=== PATIENT | male | born 1975 | race Caucasian/White ===

== ENCOUNTER 2022-12-17 10:02 | Emergency (ER) | payer MEDICAID ==
[~2022-12-17] VITALS: Ht 188 cm; Wt 104.0 kg
[2022-12-17 10:21] VITALS: O2SAT 98
[2022-12-17] MEDS ORDERED: TRAMADOL 50MG TABLET PO ONE (11:15)
[2022-12-17] MEDS ORDERED: KETOROLAC 60MG/2ML VIAL IM ONE (11:15)
[2022-12-17 12:09] LABS: CALCIUM 8.7 mg/dL (8.5-10.1); CHLORIDE 108 mEq/L (98-107); INDEX HEMOLYSI 1 (1-3); INDEX ICTERIC 1 (1-4); INDEX LIPEMIC 1 (1-3); POTASSIUM 4.9 mEq/L (3.5-5.1); SODIUM 138 mEq/L (136-145)
[2022-12-17 12:12] LABS: CARBON DIOXIDE 28 mEq/L (21-32); GLUCOSE 109 mg/dL (70-105); UREA NITROGEN BLOOD 16 mg/dL (7-21)
[2022-12-17] MEDS ORDERED: IBUP-2030 MT (12:49)
[2022-12-17] MEDS ORDERED: TRAM50TA3 MT (12:50)
[2022-12-17 13:20] VITALS: BP 139/86; PULSE 79; RESP 20; TEMP 98.3
== END 2022-12-17 13:24 | disposition home or self-care (01) ==
LOC: ER 10:02
DX: M25.551 Pain in right hip (principal); M54.30 Sciatica, unspecified side
CPT/HCPCS: 80048; 36415; 96372; 99283; J1885; Z7610